=== PATIENT | female | born 1985 | race Caucasian/White ===

== ENCOUNTER 2019-02-25 11:08 | Emergency (ER) | payer MEDICAID ==
[~2019-02-25] VITALS: Ht 165.1 cm; Wt 68.0 kg
[2019-02-25 11:15] VITALS: BP 128/88
[2019-02-25] MEDS ORDERED: ACET-3068 PO (13:15)
== END 2019-02-25 13:58 | disposition home or self-care (01) ==
LOC: ER 11:09
DX: S82.61XA Displaced fracture of lateral malleolus of right fibula, initial encounter for closed fracture (principal); Z79.899 Other long term (current) drug therapy; V29.9XXA Motorcycle rider (driver) (passenger) injured in unspecified traffic accident, initial encounter; Y93.89 Activity, other specified; Y92.488 Other paved roadways as the place of occurrence of the external cause; Y99.8 Other external cause status
CPT/HCPCS: 29515; 73610; 99284

== ENCOUNTER 2019-03-20 11:06 | Outpatient (CLI) | payer MEDICAID ==
[~2019-03-20 11:06] MED LIST: ACET-3068 PO
[2019-03-20 11:11] VITALS: BP 113/77
== END 2019-03-20 11:54 | disposition home or self-care (01) ==
LOC: ORTHO 11:06
PROVIDERS: ATTEND Orthopaedic Surgery
DX: S82.61XD Displaced fracture of lateral malleolus of right fibula, subsequent encounter for closed fracture with routine healing (principal); V19.9XXD Pedal cyclist (driver) (passenger) injured in unspecified traffic accident, subsequent encounter
CPT/HCPCS: 73610; G0463